=== PATIENT | male | born 1955 | race Caucasian/White ===

== ENCOUNTER → 2022-08-25 13:14 | Outpatient (CLI) | payer MEDICARE, SELFPAY | PROVIDERS: PCP Nurse Practitioner; Visit Provider Specialist | DX: G47.33 Obstructive sleep apnea (adult) (pediatric); R06.83 Snoring | CPT/HCPCS: G0399 ==

== ENCOUNTER → 2022-08-27 10:50 | Outpatient (CLI) | payer MEDICARE, SELFPAY ==
--- NOTE | 2022-08-27 10:50 | MR_ITS ---
FINAL REPORT CLINICAL HISTORY: encephalopathy, memory loss x2 years, no injury or trauma FINDINGS: Multi planar MR imaging was obtained through the brain without contrast. The midline structures appear intact. There is no evidence of Chiari malformation. On T2 and flair axial images the brain parenchyma is homogeneous. On diffusion-weighted images there is no evidence of restricted diffusion. The visualized paranasal sinuses demonstrate normal signal voids. The seventh and eighth nerve root complexes are intact. There is a well-circumscribed, ovoid cystic structure in the right parapharyngeal space measuring 2.5 x 1.1 cm on images 1 and 2 of series 6. Primary differential would be a 2nd branchial cleft cyst. There is asymmetric abnormal signal in the medial right petrous apex on images 7 and 8 of series 6 probably due to apical petrousitis. IMPRESSION: No acute intracranial abnormality. 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 Recommend CT for complimentary imaging. Reviewed, Interpreted and Dictated by Theodore Nunez MD Transcribed by Shoaib Conrad Authenticated and [facility]
--- NOTE | 2022-08-27 11:06 | XR_ITS ---
FINAL REPORT CLINICAL HISTORY: METALS IN EYES. HISTORY METAL IN EYES. FINDINGS: ORBITS Look up and look down views were obtained. No fracture is identified. The sinuses are clear. No foreign body is identified. IMPRESSION: No acute process. Reviewed, Interpreted and Dictated by Theodore Nunez MD Transcribed by Shoaib Conrad Authenticated and [facility]
== END ==
PROVIDERS: PCP Nurse Practitioner; Visit Provider Specialist
DX: G31.84 Mild cognitive impairment of uncertain or unknown etiology (principal); H53.40 Unspecified visual field defects; H05.53 Retained (old) foreign body following penetrating wound of bilateral orbits
CPT/HCPCS: 70200; 70551

== ENCOUNTER → 2022-09-09 08:34 | Outpatient (CLI) | payer MEDICARE, SELFPAY ==
--- NOTE | 2022-09-09 08:55 | CT_ITS ---
FINAL REPORT TECHNIQUE: Thin-section axial CT images were performed through the temporal bones before and after contrast administration. Coronal and sagittal reformatted images were submitted. This study was performed with techniques to keep radiation doses as low as reasonably achievable, (ALARA). Individualized dose reduction techniques using automated exposure control or adjustment of mA and/or kV according to the patient's size were employed. CLINICAL HISTORY: . abnormal MRI /petrositis COMPARISON: MRI dated August 27, 2022 FINDINGS: Right: The mastoid air cells are well aerated. The middle ear cavity is unremarkable. The ossicles are intact. The scutum is intact. There is abnormal opacification of the medial petrous apex best seen on axial images 90 4-109 of series 3. The petrous apex is slightly expansile on the right as compared to the left with associated cortical thickening probably due to chronic infection. There is no definite bony destruction. The previously seen anterior fluid collection is not well demonstrated. Left: The internal and external auditory canals are normal. The inner ear structures are within normal limits. The middle ear cavity is unremarkable. The ossicles are intact. The mastoid antrum and mastoid air cells are unremarkable. IMPRESSION: Abnormal opacification of the medial right petrous apex that is slightly expansile with a sclerotic peripheral margin consistent with chronic apical petrousitis. Reviewed, Interpreted and Dictated by Theodore Nunez MD Transcribed by Shoaib Conrad Authenticated and [facility]
[2022-09-09 09:13] LABS: Blood Urea Nitrogen 16 mg/dl (9-20); Estimated Glomerular Filt Rate 67 ml/min (>60); GFR (African American) 81 ML/MIN (>60)
--- NOTE | 2022-09-09 10:00 | HMH.ITSTN ---
ATTEMPTED TWICE TO GET IV, PATIENT WOULDN'T HOLD STILL, BOTH BLEW . HE SAID NO MORE TRIES, CALLED [facility] IN [facility] OFFICE AND WAS TOLD TO DO W/O SCAN
== END ==
PROVIDERS: PCP Nurse Practitioner; Visit Provider Specialist
DX: H70.20 Unspecified petrositis (principal); R90.89 Other abnormal findings on diagnostic imaging of central nervous system
CPT/HCPCS: 36415; 70482; 82565; 84520; Q9967

== ENCOUNTER → 2022-09-21 15:21 | Outpatient (CLI) | payer MEDICARE, SELFPAY | PROVIDERS: PCP Nurse Practitioner; Visit Provider Specialist | DX: R41.3 Other amnesia (principal) | CPT/HCPCS: 94762 ==

== ENCOUNTER → 2022-11-16 16:43 | Outpatient (CLI) | payer MEDICARE, SELFPAY ==
--- NOTE | 2022-11-16 16:51 | ECG_ITS ---
APPROVED REPORT Exam: Resting ECG HR:59 bpm ECG Measurements Heart Rate 59 AXES AZ 142 P 60 QRSd 96 QRS 52 QT 392 T 57 QTc 392 Conclusion SINUS BRADYCARDIA BORDERLINE ECG UNCONFIRMED REPORT Electronically signed by : Lalit Grimaldo MD 11/16/2022 21:10:19
== END ==
PROVIDERS: PCP Nurse Practitioner; Visit Provider Specialist
DX: I49.9 Cardiac arrhythmia, unspecified (principal)
CPT/HCPCS: 93005

== ENCOUNTER → 2023-08-09 10:52 | Outpatient (CLI) | payer MEDICARE, SELFPAY ==
--- NOTE | 2023-08-09 10:52 | FL_ITS ---
FINAL REPORT CLINICAL HISTORY: difficulty swallowing DAP: 102.40 fluoro time: 1.33 FINDINGS: MODIFIED BARIUM SWALLOW History: Dysphagia FINDINGS: Fluoroscopy was provided for the speech pathologist to evaluate the swallowing mechanism. The patient was given several different consistencies of barium while the swallow was visualized fluoroscopically. The report of the speech pathologist should be consulted prior to making dietary decisions. IMPRESSION: Modified barium swallow under fluoroscopic guidance. Please see the report of the speech pathologist for Dietary recommendations. Films reviewed , interpreted and dictated by Dr. Murdock Transcribed by Jamil Bello PA-C. Reviewed, Interpreted and Dictated by Torres Murdock III, MD Transcribed by KOBY Guevara Authenticated and [facility]
--- NOTE | 2023-08-09 11:31 | HMH.SLMBS2 ---
Speech & Language Evaluation Speech/Language Mod Barium Swallow Start: 08/09/23 11:23 Freq: once Status: Complete Protocol: Document 08/09/23 11:23 JACQUELINE (Rec: 08/09/23 11:31 JACQUELINE [id number]) General Information General Current Food Consistancy Regular,Thin Liquids Dentition Good Dentition Oxygen Status Room Air Patient Orientation Person,Place,Time Ability to Follow Directions Good Communication Ability No Impairment MBS Recommendations Diet Dietary Recommendations Regular,Thin Liquids Treatment/Strategies Strategy/Precaution Recommend Sitting Upright (90 deg), Double Swallow,No Straw,Small Bites and Sips,Alternate Liquids/Solids Referrals/Other Recommended Referrals GI Consult Mod Barium Swallow Impressions Summary and Impressions Oral Phase Impression Minimal Impairment Oral Phase Summary Minimal impairment of the oral transit and oral preparatory phase of the swallow 2' trace amounts of residue observed within oral cavity and BOT following solid trials, as well as premature spillage during subsequent straw sips of a thin liquid. Otherwise, mastication and manipulation of the bolus are found to be WFL. Pharyngeal Phase Impression Mild Impairment Pharyngeal Phase Summary Mild impairment of the pharyngeal phase of the swallow 2' lizzie residual found in the valleculae following subsequent straw sips of thin liquid that required multiple, cued effortful swallows to clear, as well as a delayed swallow initiation observed across all bolus trials administered. Otherwise, pharyngeal phase of the swallow appear to be WFL at this time with no overt s/ sxs of aspiration noted throughout the trial with minimal to no fatigue observed . Speech/Language MBS Assessment/Goals/Plan Assessment Date of Evaluation: 08/09/23 Evaluation Type Initial Certification Assessment/Problems
== END ==
PROVIDERS: PCP Nurse Practitioner; Visit Provider Specialist
DX: R13.10 Dysphagia, unspecified (principal)
CPT/HCPCS: 70371; 92611

== ENCOUNTER 2024-03-09 10:41 | Outpatient (CLI) | payer MEDICARE, SELFPAY ==
[2024-03-09 11:22] LABS: Blood Urea Nitrogen 22 mg/dl (9-20); Estimated Glomerular Filt Rate 75 ml/min (>60); GFR (African American) 90 ML/MIN (>60)
== END 2024-03-09 23:59 | disposition home or self-care (01) ==
LOC: LAB 10:49
PROVIDERS: PCP Nurse Practitioner
DX: R79.9 Abnormal finding of blood chemistry, unspecified (principal)
CPT/HCPCS: 36415; 82565; 84520

== ENCOUNTER 2024-03-10 06:42 | Outpatient (CLI) | payer MEDICARE, SELFPAY ==
--- NOTE | 2024-03-10 07:06 | CT_ITS ---
FINAL REPORT TECHNIQUE: Multiple axial CT sections were performed through the temporal bones appear coronal reconstruction images were performed.This study was performed with techniques to keep radiation doses as low as reasonably achievable (ALARA). Individualized dose reduction techniques using automated exposure control or adjustment of mA and/or kV according to the patient's size were employed. CLINICAL HISTORY: CHOLESTEROL GRANULOMA COMPARISON: 09/09/2023 FINDINGS: FINDINGS: RIGHT TEMPORAL BONE: The mastoid air cells are clear. Abnormal opacification of the petrous apex is again noted without progressive bony destruction. This appears unchanged. Differentials include cholesterol granuloma as well as a chronic infection of the petrous apex or mucocele. Middle ear space is clear. The ossicular chains are intact. The bony enters ear structures are unremarkable. The internal auditory canals are symmetric. LEFT TEMPORAL BONE: The mastoid air cells are clear. There is aerification of the petrous apex, which is clear. Middle ear space is clear. The ossicular chains are intact. The bony enters ear structures are unremarkable. The internal auditory canals are symmetric. IMPRESSION: No significant change in the right petrous apex opacification with differentials as above. Reviewed, Interpreted and Dictated by Melinda Godinez MD Transcribed by Anne Marie Whatley Authenticated and [facility]
--- NOTE | 2024-03-10 07:06 | CT_ITS ---
FINAL REPORT CLINICAL HISTORY: PARAPHARYNGEAL MASS COMPARISON: CT temporal bones dated 09/09/2022 FINDINGS: CT NECK WITH CONTRAST TECHNIQUE: Axial CT with IV contrast administration. FINDINGS: No adenopathy is present . Salivary glands are normal. Larynx is unremarkable. There is a bilobed, soft tissue density, masslike structure, posterior to the right masseter muscle, measuring 25 x 13 mm. This is well-seen on image 29 of series 3. On the prior CT from 09/09/2022, this process measured 27 x 13 mm. This could represent a congenital cyst and is considered benign in nature, particularly given lack of interval enlargement. IMPRESSION: 1. 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 2. No adenopathy or evidence of neoplasm. This study was performed using automated techniques to achieve radiation exposure as low as reasonably achievable Reviewed, Interpreted and Dictated by Melinda Godinez MD Transcribed by Anne Marie Whatley Authenticated and [facility]
[2024-03-10] MEDS: IOPAMIDOL-370 (76%);100ML BOTTLE 75 ML IV (07:53)
[2024-03-10] MEDS: SODIUM CHLORIDE 0.9% 10ML SYR (RAD ONLY) 10 ML IV (07:53)
== END 2024-03-10 23:59 | disposition home or self-care (01) ==
LOC: RAD 06:44
PROVIDERS: PCP Nurse Practitioner; Visit Provider Otolaryngology
DX: R22.1 Localized swelling, mass and lump, neck (principal); H71.90 Unspecified cholesteatoma, unspecified ear
CPT/HCPCS: 70480; 70491; Q9967

== ENCOUNTER 2025-02-01 20:18 | Observation (INO) | payer MEDICARE, SELFPAY ==
[2025-02-01] VITALS (13 sets, daily range): BP systolic 112–198; BP diastolic 79–108; PULSE 70–84; RESP 12–22; TEMP 36.6–37.1; O2SAT 93–100; BMI 29.7; BMI 29.8
--- NOTE | 2025-02-01 20:22 | ED_ITS ---
<Statement entered by Jerry Sy MD - 02/01/25 22:34> I was consulted by the APOLLO, and we discussed the complexity of the problems being addressed. I approved the treatment and management plan for this patient's care in the emergency department, thus performing a substantive portion of the medical decision making. Jerry Sy MD, MARCIA, FACEP Discharge Plan Disposition Patient Disposition: Admitted Chief Complaint: Nausea/Vomiting/Diarrhea Prescriptions Prescriptions: No Action cetirizine [Zyrtec] 10 mg tablet 10 mg PO DAILY omeprazole 20 mg capsule,delayed release(DR/EC) 20 mg PO DAILY melatonin 5 mg capsule See Rx Instructions PO .COMPLEX Rx Instructions: orally hs; famotidine [Pepcid] 20 mg tablet 20 mg PO DAILY buspirone 7.5 mg tablet 7.5 mg PO BID PRN Patient Comments: Take 1 tablet twice a day by oral route as needed for 30 days. Rocklatan 0.02-0.005 % drops Eye-Both HS Patient Comments: INSTILL 1 DROP INTO BOTH EYES EVERY DAY AT BEDTIME meloxicam 15 mg tablet 15 mg PO DAILY diphenhydramine HCl [Benadryl] 25 mg capsule 25 mg PO HS PRN rivastigmine tartrate 4.5 mg capsule See Rx Instructions .ROUTE .COMPLEX Qty: 30 7RF Dose Instruction: TAKE 1 CAPSULE BY MOUTH ONCE DAILY FOR DEMENTIA Rx Instructions: TAKE 1 CAPSULE BY MOUTH ONCE DAILY FOR DEMENTIA Referrals Follow up/Referrals: Antonella Terrazas APRN [Primary Care Provider] - See instructions Clinical Impressions Clinical Impression: Acute upper GI bleed Instructions Patient Instructions: DI for Diarrhea and Traveler's Diarrhea -- Adult, DI for Diarrhea and Traveler's Diarrhea -- Child, DI for Nausea -- Adult, DI for Nausea -- Child Print Language Print Language: Polish Discharge ED Provider: Jerry Sy General Adult HPI <KOBY Saini - Last Filed: 02/01/25 21:18> General Chief complaint: Nausea/Vomiting/Diarrhea Stated complaint: vomiting dark brown emesis,upper abd pain Time Seen by Provider: 02/01/25 20:22 History of Present Illness HPI narrative: Patient presents for evaluation of nausea vomiting of coffee ground emesis and epigastric abdominal pain. Symptoms began this afternoon abruptly. He has had several episodes of coffee-ground emesis. He does have a history of chronic dyspepsia due to the medication regimen that he is on however he is on both famotidine and omeprazole but takes meloxicam daily as well. He denies any chest pain shortness of breath fever chills hemoptysis hematochezia melena hematemesis. Related Data Home Medications ?Medication ?Instructions ?Recorded ?Confirmed meloxicam 15 mg tablet 15 mg PO DAILY 08/18/22 08/23/24 diphenhydramine HCl 25 mg capsule 25 mg PO HS PRN 02/10/23 08/23/24 (Benadryl) cetirizine 10 mg tablet (Zyrtec) 10 mg PO DAILY 05/18/23 08/23/24 melatonin 5 mg capsule See Rx Instructions PO .COMPLEX 05/18/23 08/23/24 omeprazole 20 mg capsule,delayed 20 mg PO DAILY 05/18/23 08/23/24 release famotidine 20 mg tablet (Pepcid) 20 mg PO DAILY 10/13/23 08/23/24 buspirone 7.5 mg tablet 7.5 mg PO BID PRN 02/14/24 08/23/24 netarsudil 0.02 %-latanoprost drp Eye-Both HS 08/23/24 08/23/24 0.005 % eye drops (Rocklatan) Previous Rx's ?Medication ?Instructions ?Recorded rivastigmine tartrate 4.5 mg See Rx Instructions .Route 09/04/24 capsule .COMPLEX #30 caps Allergies Allergy/AdvReac Type Severity Reaction Status Date / Time Penicillins Allergy Intermediate Verified 08/23/24 10:53 morphine AdvReac Mild Verified 08/23/24 10:53 [facility] <KOBY Saini - Last Filed: 02/01/25 21:18> [facility] Disclaimer: The information contained in this section may have been updated after the patient was seen, as this information can be updated by other users. Medical History H/O Mohs micrographic surgery for skin cancer Dysphagia Cardiac arrhythmia Mild bradycardia, splitting of second sound MCI (mild cognitive impairment) with memory loss MCI with memory loss in a patient with lifelong history of learning disability. Mild parkinsonian signs and symptoms on exam consistent with suspected diagnosis of Lewy body disease. Surgical History History of cholecystectomy Family History Other Cancer Coronary artery disease Social History Smoking Status: Never smoker alcohol intake: never substance use type: denies use current occupational status: retired Travel in the last 8 weeks: Inside the [place] household members: spouse housing: other marital status: Have you lived/traveled outside [place] in past 30 days?: No Contact w/someone who lives/traveled outside US past 30 days?: No Exposure to someone with infectious disease in past 14 days?: No Do you have a fever (greater than 100.4 F or 38 C)?: No Have you tested positive for COVID-19: No Exposed to someone with COVID-19 in past 14 days?: No Do you have a sore throat?: No Do you have a cough?: No Do you have any weakness?: No Do you have any diarrhea?: No Are you experiencing any unusual bleeding?: No Do you have any muscle aches/pain?: No Do you have any abdominal pain?: No Are you experiencing loss of taste or smell?: No Other Medical History Have you received the Pneumonia Vaccine: No <KOBY Saini - Last Filed: 02/01/25 21:18> ROS Obtained: Yes Systems reviewed as appropriate & no additional complaints except as documented Physical Exam <KOBY Saini - Last Filed: 02/01/25 21:18> General General appearance: alert and in no apparent distress Respiratory Respiratory exam: Present normal lung sounds bilaterally Cardiovascular Cardiovascular exam: Present regular rate Neurological Exam Neurological exam: Present alert and oriented X3 Medical Decision Making <KOBY Saini - Last Filed: 02/01/25 21:18> Medical Records Medical records reviewed: Yes I reviewed the patient's medical records. Screening: Per USPSTF and CDC recommendations, given the prevalence of disease in our region, it is our hospital?s policy to screen for HIV and viral Hepatitis for all patients aged 18 and over and those with ongoing risk factors. Brennan Inquiry Pt receiving controlled substance: No Vital Signs: 02/01/25 20:38 02/01/25 21:00 02/01/25 21:30 Temperature 98.7 F Temperature Source Oral Pulse Rate 77 72 Pulse Rate [Right] 84 Respiratory Rate 18 19 15 Blood Pressure 131/84 144/88 H Blood Pressure [Right Arm] 147/84 H Blood Pressure Mean [Right Arm] 105 Blood Pressure Source [Right Arm] Automatic Cuff Blood Pressure Position [Right Arm] Sitting 02 Sat by Pulse Oximetry 100 93 L 94 L Oxygen Delivery Method Room Air 02/01/25 22:01 02/01/25 22:16 02/01/25 22:31 Temperature Temperature Source Pulse Rate 74 80 72 Pulse Rate [Right] Respiratory Rate 12 Blood Pressure 172/108 H 112/93 H 198/103 H Blood Pressure [Right Arm] Blood Pressure Mean [Right Arm] Blood Pressure Source [Right Arm] Blood Pressure Position [Right Arm] 02 Sat by Pulse Oximetry 97 94 L 99 Oxygen Delivery Method Room Air Lab Data Lab results reviewed: Yes I reviewed the patient's lab results. Lab Results 02/01/25 20:33: WBC 14.0 H, RBC 5.00, Hgb 15.2, Hct 44.6, MCV 89.2, MCH 30.4, MCHC 34.1, RDW 11.9, Plt Count 229, MPV 9.4, Neut % (Auto) 82.2 H, Lymph % (Auto) 10.5, [place] % (Auto) 5.9, Eos % (Auto) 0.7, Baso % (Auto) 0.3, Neut # (Auto) 11.5 H, Lymph # (Auto) 1.5, [place] # (Auto) 0.8, Eos # (Auto) 0.1, Baso # (Auto) 0.0, PT 11.1, INR 0.99, Sodium 140, Potassium 3.4 L, Chloride 105, Carbon Dioxide 27, Anion Gap 11.4, BUN 19, Creatinine 1.00, Estimated Creat Clear 90, Estimated GFR 75, Est GFR ( Amer) 90, Glucose 107 H, Calcium 9.3, M agnesium 1.4 L, Total Bilirubin 0.8, AST 40, ALT 28, Alkaline Phosphatase 83, Total Protein 7.8, Albumin 4.2, Globulin 3.6 H, Albumin/Globulin Ratio 1.2 02/01/25 20:48: Lactate 1.5, Blood Type O Positive, Antibody Screen Negative 02/01/25 22:20: Urine Color Yellow, Urine Appearance Clear, Urine pH 7.0, Ur Specific [place] 1.010, Urine Protein Negative, Urine Glucose (UA) Negative, Urine Ketones Negative, Urine Blood Negative, Urine Nitrate Negative, Urine Bilirubin Negative, Urine Urobilinogen 0.2, Ur Leukocyte Esterase Negative, Urine RBC Occasional, Urine WBC Occasional, Ur Squamous Epith Cells Occasional, Urine Bacteria Trace, Urine Mucus Trace, Urine Sperm Occ 02/01/25 20:33 02/01/25 20:33 Orders (Tests/Meds): ED MEDICATIONS Generic Name Dose Route Start Last Admin Trade Name Freq PRN Reason Stop Dose Admin Pantoprazole Sodium 80 mg/ 100 mls @ 10 mls/hr 02/01/25 20:30 02/01/25 20:49 Sodium Chloride IV 02/04/25 20:29 10 mls/hr .Q10H SESAR Administration Discontinued Medications Generic Name Dose Route Start Last Admin Trade Name Freq PRN Reason Stop Dose Admin Acetaminophen 1,000 mg 02/01/25 20:27 02/01/25 20:50 Acetaminophen 1,000mg/100ml Vial IV 02/01/25 20:28 1,000 mg ONCE ONE Administration Sodium Chloride 1,000 mls @ 999 mls/hr 02/01/25 20:27 02/01/25 20:49 Sod Chlor 0.9% 1000ml Bag IV 02/01/25 21:27 999 mls/hr .Q1H1M ONE Administration Iopamidol 80 ml 02/01/25 21:46 02/01/25 21:50 Iopamidol-370 (76%);100ml Bottle IV 02/01/25 21:47 80 ml ONCE ONE Administration Ondansetron HCl 4 mg 02/01/25 20:27 02/01/25 20:50 Ondansetron 4mg/2ml Vial IV 02/01/25 20:28 4 mg ONCE ONE Administration Ondansetron HCl 4 mg 02/01/25 22:41 02/01/25 22:43 Ondansetron 4mg/2ml Vial IV 02/01/25 22:42 4 mg ONCE ONE Administration Sodium Chloride 50 ml 02/01/25 21:46 02/01/25 21:50 0.9 % Sodium Chloride 50 Ml Vial IV 02/01/25 21:47 50 ml ONCE ONE Administration Sodium Chloride 10 ml 02/01/25 21:46 02/01/25 21:50 Sodium Chloride 0.9% 10ml Syr (Rad Only) IV 02/01/25 21:47 10 ml ONCE ONE Administration ORDERS Category Date Time Status Type and Screen Stat BBK 02/01/25 20:[address] angio abd/pel - GI Bleed Stat Cat Scan 02/01/25 20:27 Completed CBC w/Auto Diff [Complete Blood Count Auto Diff] Stat Lab 02/01/25 20:33 Completed CMP [Comprehensive Metabolic Panel] Stat Lab 02/01/25 20:33 Completed INR [Prothrombin Time INR] Stat Lab 02/01/25 20:33 Completed Lactic Acid Stat Lab 02/01/25 20:48 Completed Magnesium Stat Lab 02/01/25 20:33 Completed Occult Blood,Gastric Fluid Stat Lab 02/01/25 22:45 Ordered UA [Urinalysis and Microscopic] Stat Lab 02/01/25 22:20 Completed Medical Decision Narrative: In summary patient is a 69-year-old male who presents to the emergency department for evaluation of nausea vomiting of coffee-ground emesis and epigastric abdominal pain. Patient is [hemodynamically stable/unstable] upon arrival, [febrile/afebrile]. Physical exam is remarkable for tenderness to palpation in the epigastrium however there is no rebound no guarding no rigidity bowel sounds normal active. Breath sounds clear equal bilaterally to the bases without Evotaz sounds or increased work of breathing.. Differential diagnosis includes gastritis versus ulcer versus GI bleeding versus pancreatitis versus gastroenteritis etc. Initial workup will be conducted with hematologic labs CT scan abdomen pelvis GI bleed protocol. Initial interventions include crystalloid bolus Protonix drip Zofran continuous cardiac monitoring pulse oximetry. Initial workup ordered and pending at the time of handoff to Dr. Sy at 2200 hrs. <Jerry Sy MD - Last Filed: 02/01/25 23:00> Vital Signs: 02/01/25 20:38 02/01/25 21:00 02/01/25 21:30 Temperature 98.7 F Temperature Source Oral Pulse Rate 77 72 Pulse Rate [Right] 84 Respiratory Rate 18 19 15 Blood Pressure 131/84 144/88 H Blood Pressure [Right Arm] 147/84 H Blood Pressure Mean [Right Arm] 105 Blood Pressure Source [Right Arm] Automatic Cuff Blood Pressure Position [Right Arm] Sitting 02 Sat by Pulse Oximetry 100 93 L 94 L Oxygen Delivery Method Room Air 02/01/25 22:01 02/01/25 22:16 02/01/25 22:31 Temperature Temperature Source Pulse Rate 74 80 72 Pulse Rate [Right] Respiratory Rate 12 Blood Pressure 172/108 H 112/93 H 198/103 H Blood Pressure [Right Arm] Blood Pressure Mean [Right Arm] Blood Pressure Source [Right Arm] Blood Pressure Position [Right Arm] 02 Sat by Pulse Oximetry 97 94 L 99 Oxygen Delivery Method Room Air Lab Data Lab results reviewed: Yes I reviewed the patient's lab results. Lab Results 02/01/25 20:33: WBC 14.0 H, RBC 5.00, Hgb 15.2, Hct 44.6, MCV 89.2, MCH 30.4, MCHC 34.1, RDW 11.9, Plt Count 229, MPV 9.4, Neut % (Auto) 82.2 H, Lymph % (Auto) 10.5, [place] % (Auto) 5.9, Eos % (Auto) 0.7, Baso % (Auto) 0.3, Neut # (Auto) 11.5 H, Lymph # (Auto) 1.5, [place] # (Auto) 0.8, Eos # (Auto) 0.1, Baso # (Auto) 0.0, PT 11.1, INR 0.99, Sodium 140, Potassium 3.4 L, Chloride 105, Carbon Dioxide 27, Anion Gap 11.4, BUN 19, Creatinine 1.00, Estimated Creat Clear 90, Estimated GFR 75, Est GFR ( Amer) 90, Glucose 107 H, Calcium 9.3, M agnesium 1.4 L, Total Bilirubin 0.8, AST 40, ALT 28, Alkaline Phosphatase 83, Total Protein 7.8, Albumin 4.2, Globulin 3.6 H, Albumin/Globulin Ratio 1.2 02/01/25 20:48: Lactate 1.5, Blood Type O Positive, Antibody Screen Negative 02/01/25 22:20: Urine Color Yellow, Urine Appearance Clear, Urine pH 7.0, Ur Specific [place] 1.010, Urine Protein Negative, Urine Glucose (UA) Negative, Urine Ketones Negative, Urine Blood Negative, Urine Nitrate Negative, Urine Bilirubin Negative, Urine Urobilinogen 0.2, Ur Leukocyte Esterase Negative, Urine RBC Occasional, Urine WBC Occasional, Ur Squamous Epith Cells Occasional, Urine Bacteria Trace, Urine Mucus Trace, Urine Sperm Occ Orders (Tests/Meds): ED MEDICATIONS Generic Name Dose Route Start Last Admin Trade Name Bob PRN Reason Stop Dose Admin Pantoprazole Sodium 80 mg/ 100 mls @ 10 mls/hr 02/01/25 20:30 02/01/25 20:49 Sodium Chloride IV 02/04/25 20:29 10 mls/hr .Q10H SESAR Administration Discontinued Medications Generic Name Dose Route Start Last Admin Trade Name Freq PRN Reason Stop Dose Admin Acetaminophen 1,000 mg 02/01/25 20:27 02/01/25 20:50 Acetaminophen 1,000mg/100ml Vial IV 02/01/25 20:28 1,000 mg ONCE ONE Administration Sodium Chloride 1,000 mls @ 999 mls/hr 02/01/25 20:27 02/01/25 20:49 Sod Chlor 0.9% 1000ml Bag IV 02/01/25 21:27 999 mls/hr .Q1H1M ONE Administration Iopamidol 80 ml 02/01/25 21:46 02/01/25 21:50 Iopamidol-370 (76%);100ml Bottle IV 02/01/25 21:47 80 ml ONCE ONE Administration Ondansetron HCl 4 mg 02/01/25 20:27 02/01/25 20:50 Ondansetron 4mg/2ml Vial IV 02/01/25 20:28 4 mg ONCE ONE Administration Ondansetron HCl 4 mg 02/01/25 22:41 02/01/25 22:43 Ondansetron 4mg/2ml Vial IV 02/01/25 22:42 4 mg ONCE ONE Administration Sodium Chloride 50 ml 02/01/25 21:46 02/01/25 21:50 0.9 % Sodium Chloride 50 Ml Vial IV 02/01/25 21:47 50 ml ONCE ONE Administration Sodium Chloride 10 ml 02/01/25 21:46 02/01/25 21:50 Sodium Chloride 0.9% 10ml Syr (Rad Only) IV 02/01/25 21:47 10 ml ONCE ONE Administration ORDERS Category Date Time Status Type and Screen Stat BBK 02/01/25 20:[address] angio abd/pel - GI Bleed Stat Cat Scan 02/01/25 20:27 Completed CBC w/Auto Diff [Complete Blood Count Auto Diff] Stat Lab 02/01/25 20:33 Completed CMP [Comprehensive Metabolic Panel] Stat Lab 02/01/25 20:33 Completed INR [Prothrombin Time INR] Stat Lab 02/01/25 20:33 Completed Lactic Acid Stat Lab 02/01/25 20:48 Completed Magnesium Stat Lab 02/01/25 20:33 Completed Occult Blood,Gastric Fluid Stat Lab 02/01/25 22:45 Ordered UA [Urinalysis and Microscopic] Stat Lab 02/01/25 22:20 Completed Medical Decision Narrative: In summary patient is a 69-year-old male who presents to the emergency department for evaluation of nausea vomiting of coffee-ground emesis and epigastric abdominal pain. Patient is [hemodynamically stable/unstable] upon arrival, [febrile/afebrile]. Physical exam is remarkable for tenderness to palpation in the epigastrium however there is no rebound no guarding no rigidity bowel sounds normal active. Breath sounds clear equal bilaterally to the bases without Evotaz sounds or increased work of breathing.. Differential diagnosis includes gastritis versus ulcer versus GI bleeding versus pancreatitis versus gastroenteritis etc. Initial workup will be conducted with hematologic labs CT scan abdomen pelvis GI bleed protocol. Initial interventions include crystalloid bolus Protonix drip Zofran continuous cardiac monitoring pulse oximetry. Initial workup ordered and pending at the time of handoff to Dr. Sy at [address] Sy 10:[address] scan was performed I personally interpreted which shows no evidence of any active extravasating bleed or any other acute pathology regarding abdominal surgical pathology. Patient has had persistent nausea and vomiting that is coffee-ground. The patient states he has had some melena however he is a poor historian his is at the bedside states that she has been able to see his stool because he does not flush and she has not noticed any melena. He does chronically take meloxicam and likely has an ulcer given his presentation. H&H is stable hemodynamically he is stable he has been given a PPI. Serial abdominal exams are benign. There was some question about whether or not Dr. Guillen would be available tomorrow morning patient is very stable does not need emergent intervention at the moment. I spoke with Dr. Sebastian and with Rob with hospital medicine. Dr. Sebastian is comfortable keeping this patient and discussed the case in the morning with Dr. Guillen also Dr. Berrios is on-call and available for backup from a procedural standpoint if needed. Critical Care <KOBY Saini - Last Filed: 02/01/25 21:18> Critical Care Time Critical Care Time: Yes Attestation: On 02/01/25, the high probability of a clinically significant, sudden or life threatening deterioration of the following system(s) required my full and direct attention, intervention and personal management. The time I documented below is in addition to time spent performing reported procedures but includes the following listed in this critical care notation. Total Time Total Critical Care Time: 35
--- NOTE | 2025-02-01 20:27 | CT_ITS ---
PROCEDURE INFORMATION: Exam: CTA Abdomen and Pelvis With Contrast Exam date and time: 02/01/2025 9:42 PM Age: 69 years old Clinical indication: Abdominal pain; Epigastric; Additional info: Coffee-ground emesis epigastric abdominal pain TECHNIQUE: Imaging protocol: Computed tomographic angiography of the abdomen and pelvis with contrast. Exam focused on the arteries. 3D rendering (Not supervised by radiologist): MIP and/or 3D reconstructed images were created by the technologist. Radiation optimization: All CT scans at this facility use at least one of these dose optimization techniques: automated exposure control; mA and/or kV adjustment per patient size (includes targeted exams where dose is matched to clinical indication); or iterative reconstruction. Contrast material: ISOVUE; Contrast volume: 80 ml; Contrast route: INTRAVENOUS (IV); COMPARISON: No relevant prior studies available. FINDINGS: Aorta: No aortic aneurysm. No aortic dissection. Celiac trunk and mesenteric arteries: No occlusion or significant stenosis. Renal arteries: No occlusion or significant stenosis. Right iliac arteries: No occlusion or significant stenosis. Left iliac arteries: No occlusion or significant stenosis. Liver: The liver appears within normal limits. Gallbladder and biliary ducts: There has been a cholecystectomy. Pancreas: The pancreas is normal. Spleen: The spleen is normal. Adrenal glands: The adrenal glands appear within normal limits. Kidneys and ureters: The kidneys are normal. Stomach and bowel: The stomach appears within normal limits. No wall thickening or inflammatory change. There are changes of diverticulosis without evidence for diverticulitis noted within the sigmoid colon.. Appendix: No evidence of appendicitis. Intraperitoneal space: No free air. No evidence for focal fluid collection or ascites. No evidence for omental thickening. Lymph nodes: Unremarkable. No pathologically enlarged lymph nodes are identified. Urinary bladder: The bladder appears within normal limits. No wall thickening. Reproductive: The prostate gland appears normal. Bones/joints: No acute fracture. Soft tissues: The visualize subcutaneous soft tissues and abdominal wall and flank wall appear unremarkable. IMPRESSION: 1. Diverticulosis without CT evidence to suggest diverticulitis. 2. No CT evidence to suggest active GI bleed. 3. No acute inflammatory process.
[2025-02-01 20:47] LABS: Basophils % 0.3 % (0.1-2.0); Eosinophils # 0.1 Kmm3 (0.0-0.4); Eosinophils % 0.7 % (0.1-12.0); Hematocrit 44.6 % (42.0-52.0); Hemoglobin 15.2 g/dL (14.1-18.0); Lymphocytes # 1.5 K/mm3 (0.7-4.5); Lymphocytes % 10.5 % (10-50); Mean Corpuscular HGB Conc 34.1 g/dL (31.8-35.4); Mean Corpuscular Hemoglobin 30.4 pg (27.0-31.2); Mean Corpuscular Volume 89.2 fl (80-94); Mean Platelet Volume 9.4 fl (7.4-10.4); Monocytes # 0.8 K/mm3 (0.1-1.0); Monocytes % 5.9 % (1.7-9.3); Neutrophils # 11.5 K/mm3 (1.8-7.8); Neutrophils % 82.2 % (37.0-80.0); Nucleated Red Blood Cells # 0 10^3/uL; Nucleated Red Blood Cells % 0 %; Platelet Count 229 K/mm3 (142-424); Red Cell Distribution Width 11.9 % (11.5-17.5); Red Cell Distribution Width-SD 38.9 fL
[2025-02-01] MEDS: 0.9 % SODIUM CHLORIDE 1000ML 1,000 ML 999 ML IV (20:49)
[2025-02-01] MEDS: PANTOPRAZOLE SODIUM 80 MG in 0.9 % SODIUM CHLORIDE 100 ML 10 MG IV (20:49)
[2025-02-01] MEDS: ONDANSETRON 4MG/2ML VIAL 4 MG IV ×2 (20:50→22:43)
[2025-02-01] MEDS: ACETAMINOPHEN 1,000MG/100ML VIAL 1000 MG IV (20:50)
[2025-02-01 21:12] LABS: Albumin Level 4.2 g/dl (3.5-5.0); Chloride 105 mmol/L (98-107); INR 0.99 (0.9-1.1); Potassium 3.4 mmoL/L (3.5-5.1); Prothrombin Time 11.1 seconds (10.1-12.5); Sodium 140 mmol/L (136-145)
[2025-02-01 21:15] LABS: Alanine Aminotransferase 28 U/L (12-78); Albumin/Globulin Ratio 1.2 (1.1-1.8); Alkaline Phosphatase 83 U/L (38-126); Anion Gap 11.4 mEq/L (5-15); Aspartate Amino Transferase 40 U/L (17-59); Bilirubin,Total 0.8 mg/dl (0.2-1.3); Blood Urea Nitrogen 19 mg/dl (9-20); Carbon Dioxide 27 mmol/L (22.0-30.0); Creatinine Clearance Estimated 90 mL/min (50-200); Estimated Glomerular Filt Rate 75 ml/min (>60); GFR (African American) 90 ML/MIN (>60); Globulin 3.6 g/dL (1.3-3.2); Total Protein,Serum 7.8 g/dl (6.3-8.2)
[2025-02-01 21:16] LABS: Calcium 9.3 mg/dl (8.4-10.2); Glucose 107 mg/dl (74-100); Magnesium 1.4 mg/dl (1.6-2.3)
[2025-02-01 21:21] LABS: Lactic Acid 1.5 mmol/L (0.7-2.1)
[2025-02-01] MEDS: 0.9 % SODIUM CHLORIDE 50 ML VIAL IV (21:50)
[2025-02-01] MEDS: SODIUM CHLORIDE 0.9% 10ML SYR (RAD ONLY) 10 ML IV (21:50)
[2025-02-01] MEDS: IOPAMIDOL-370 (76%);100ML BOTTLE 80 ML IV (21:50)
--- NOTE | 2025-02-01 22:21 | PC.NURSE ---
Addendum entered by Harvinder Sy 02/01/25 22:21: Urine sent 22:20 Original Note: Urined sent 22:20
[2025-02-01 22:23] LABS: Microscopic, Urine URINE MICROSCOPIC (MICROSCOPIC)
[2025-02-01 22:35] LABS: Appearance,Urine CLEAR (Clear); Bilirubin,Urine Negative (Negative); Blood, Urine Negative (Negative); Color,Urine YELLOW (Yellow); Glucose,Urine (UA) Negative (Negative); Ketones,Urine Negative (Negative); Leukocyte Esterase,Urine Negative (Negative); Nitrate,Urine Negative (Negative); Protein,Urine Negative (Negative); Urobilinogen,Urine 0.2 EU/dl (0.2)
[2025-02-01 22:49] LABS: Bacteria,Urine Trace /lpf; Mucus,Urine Trace /lpf; RBC,Urine Occasional #/hpf (0-3); Sperm,Urine OCC /lpf; Squamous Epithelial Cell,Urine Occasional #/hpf (0-5); WBC,Urine Occasional #/hpf (0-3)
--- NOTE | 2025-02-01 22:52 | PC.NURSE ---
Pt had an episode of dark red emesis. Pt assisted with changing into a gown and cleaning up.
--- NOTE | 2025-02-01 23:02 | PC.NURSE ---
wash house worker notified of patient to be admitted.
--- NOTE | 2025-02-01 23:12 | PC.NURSE ---
report called to marianna MARROQUIN, pending transport
--- NOTE | 2025-02-01 23:13 | P.HP_ITS ---
<Statement entered by Ernesto Sebastian MD - 02/02/25 21:29> Rounded on patient after nurse practitioner. Personally examined and interviewed patient. Agree with exam findings and care plan as documented. History of Present Illness *Admission Date: 02/01/25 *Reason for visit:: Dark color vomit *History of present illness: This is a 69-year-old male who has a past medical history significant for Lewy body dementia, cardiac arrhythmia, mild cognitive impairment with memory loss, and dysphagia who presents with a chief complaint of dark-colored vomit. Due to patient's symptoms, he presented to the emergency room for evaluation. While in the emergency room, CT scan of abdomen pelvis revealed diverticulosis without CT evidence to suggest diverticulitis, no CT evidence to suggest active GI bleed, and no acute inflammatory process. Patient's hemoglo bin, hematocrit, and blood pressure were stable. Due to the findings of hematemesis, medicine was contacted to admit for further management. During my evaluation of the patient, patient states he started experiencing epigastric pain coupled with coffee ground emesis that started this afternoon. He has experienced no lightheadedness with this; moreover, patient denies any chest pain, lightheadedness, dizziness, hemoptysis, hematuria, melanotic stool, hematochezia, shortness of breath, dyspnea, PND, orthopnea, or headache. Additional pertinent vitals obtained including white blood cell count of 14, neutrophils 82.2%, potassium of 3.4, blood glucose 107, and magnesium 1.4. Spouse at the bedside states that patient did have a lower scope performed in the past without any abnormal findings; however, he has had no upper scope performed. Review of patient's outpatient medication reveals he is prescribed meloxicam and is currently not prescribed any blood thinning medications. [facility] Disclaimer: The information contained in this section may have been updated after the patient was seen, as this information can be updated by other users. Medical History H/O Mohs micrographic surgery for skin cancer Dysphagia Cardiac arrhythmia Mild bradycardia, splitting of second sound MCI (mild cognitive impairment) with memory loss MCI with memory loss in a patient with lifelong history of learning disability. Mild parkinsonian signs and symptoms on exam consistent with suspected diagnosis of Lewy body disease. Surgical History History of cholecystectomy Family History Other Cancer Coronary artery disease Social History Smoking Status: Never smoker alcohol intake: never substance use type: denies use current occupational status: retired Travel in the last 8 weeks: Inside the [place] household members: spouse housing: other marital status: Have you lived/traveled outside US in past 30 days?: No Contact w/someone who lives/traveled outside US past 30 days?: No Exposure to someone with infectious disease in past 14 days?: No Do you have a fever (greater than 100.4 F or 38 C)?: No Have you tested positive for COVID-19: No Exposed to someone with COVID-19 in past 14 days?: No Do you have a sore throat?: No Do you have a cough?: No Do you have any weakness?: No Do you have any diarrhea?: No Are you experiencing any unusual bleeding?: No Do you have any muscle aches/pain?: No Do you have any abdominal pain?: No Are you experiencing loss of taste or smell?: No Other Medical History Have you received the Pneumonia Vaccine: No Review of Systems Review of Systems Review of systems:: pertinent systems reviewed and negative unless documented below Constitutional Constitutional: Reports system reviewed and no additional complaints, except as documented Eyes Eyes: Reports system reviewed and no additional complaints, except as documented ENT Ears, Nose, Mouth, and Throat: Reports system reviewed and no additional complaints, except as documented *Cardiovascular Cardiovascular: Reports system reviewed and no additional complaints, except as documented *Respiratory Respiratory: Reports system reviewed and no additional complaints, except as documented *Gastrointestinal Gastrointestinal: Reports abdominal pain and Reports coffee ground emesis *Genitourinary Genitourinary: Reports system reviewed and no additional complaints, except as documented *Musculoskeletal Musculoskeletal: Reports system reviewed and no additional complaints, except as documented Integumentary/Breasts Skin/Breast: Reports system reviewed and no additional complaints, except as documented *Neurologic Neurologic: Reports system reviewed and no additional complaints, except as documented Psychiatric Psychiatric: Reports system reviewed and no additional complaints, except as documented Endocrine Endocrine: Reports system reviewed and no additional complaints, except as documented Hematologic/Lymphatic Hematologic/Lymphatic: Reports system reviewed and no additional complaints, except as documented Allergic/Immunologic Allergic/Immunologic: Reports system reviewed and no additional complaints, except as documented Meds Home Medications and Allergies Home Medications ?Medication ?Instructions ?Recorded ?Confirmed ?Type meloxicam 15 mg tablet 15 mg PO DAILY 08/18/22 08/23/24 History diphenhydramine HCl 25 mg capsule 25 mg PO HS PRN 02/10/23 08/23/24 History (Benadryl) cetirizine 10 mg tablet (Zyrtec) 10 mg PO DAILY 05/18/23 08/23/24 History melatonin 5 mg capsule See Rx Instructions PO .COMPLEX 05/18/23 08/23/24 History omeprazole 20 mg capsule,delayed 20 mg PO DAILY 05/18/23 08/23/24 History release famotidine 20 mg tablet (Pepcid) 20 mg PO DAILY 10/13/23 08/23/24 History buspirone 7.5 mg tablet 7.5 mg PO BID PRN 02/14/24 08/23/24 History netarsudil 0.02 %-latanoprost drp Eye-Both HS 08/23/24 08/23/24 History 0.005 % eye drops (Rocklatan) rivastigmine tartrate 4.5 mg See Rx Instructions .Route 09/04/24 Rx capsule .COMPLEX #30 caps New Prescriptions to Start Prescriptions: Allergies Allergy/AdvReac Type Severity Reaction Status Date / Time Penicillins Allergy Intermediate Verified 08/23/24 10:53 morphine AdvReac Mild Verified 08/23/24 10:53 Exam Data for Last 24 hours Vital signs and Labs for Last 24 Hours: Temp Pulse Resp BP Pulse Ox O2 Del Method 98.7 F 74 16 168/94 H 96 Room Air 02/01/25 20:38 02/01/25 23:06 02/01/25 23:06 02/01/25 23:06 02/01/25 23:06 02/01/25 22:31 Laboratory Results - last 24 hr 02/01/25 20:33: WBC 14.0 H, RBC 5.00, Hgb 15.2, Hct 44.6, MCV 89.2, MCH 30.4, MCHC 34.1, RDW 11.9, Plt Count 229, MPV 9.4, Neut % (Auto) 82.2 H, Lymph % (Auto) 10.5, [place] % (Auto) 5.9, Eos % (Auto) 0.7, Baso % (Auto) 0.3, Neut # (Auto) 11.5 H, Lymph # (Auto) 1.5, [place] # (Auto) 0.8, Eos # (Auto) 0.1, Baso # (Auto) 0.0, PT 11.1, INR 0.99, Sodium 140, Potassium 3.4 L, Chloride 105, Carbon Dioxide 27, Anion Gap 11.4, BUN 19, Creatinine 1.00, Estimated Creat Clear 90, Estimated GFR 75, Est GFR ( Amer) 90, Glucose 107 H, Calcium 9.3, Magnesium 1.4 L, Total Bilirubin 0.8, AST 40, ALT 28, Alkaline Phosphatase 83, Total Protein 7.8, Albumin 4.2, Globulin 3.6 H, Albumin/Globulin Ratio 1.2 02/01/25 20:48: Lactate 1.5, Blood Type O Positive, Antibody Screen Negative 02/01/25 22:20: Urine Color Yellow, Urine Appearance Clear, Urine pH 7.0, Ur Specific [place] 1.010, Urine Protein Negative, Urine Glucose (UA) Negative, Urine Ketones Negative, Urine Blood Negative, Urine Nitrate Negative, Urine Bilirubin Negative, Urine Urobilinogen 0.2, Ur Leukocyte Esterase Negative, Urine RBC Occasional, Urine WBC Occasional, Ur Squamous Epith Cells Occasional, Urine Bacteria Trace, Urine Mucus Trace, Urine Sperm Occ I & O for Last 24 hours: Intake & Output 01/29/25 01/30/25 01/31/25 02/01/25 23:59 23:59 23:59 23:59 Weight 88.904 kg Constitutional Constitutional: no acute distress and cooperative *Routine HEENT Exam Head: Present normocephalic and atraumatic Eye: Present EOMI ENT: Present mucous membranes moist *Routine Neck Exam Neck: Present supple, full ROM and trachea midline *Routine Respiratory Exam Respiratory: Present CTA bilaterally, normal respiratory effort, able to speak in complete sentences and symmetric chest movement *Routine Cardiovascular Exam Cardiovascular: Present RRR, Normal S1 and Normal S2 *Routine Abdominal Exam Abdominal: Present soft and normoactive bowel sounds *Routine Rectal Exam Rectal:: deferred *Routine Genitalia Exam Genitalia:: deferred *Routine Extremities Exam Extremities: Present full ROM, pulses intact and normal capillary refill Routine Back/Spine/Pelvis Exam Back/Spine: Present full ROM *Routine Skin Exam Skin: Present intact, dry, warm and normal turgor *Routine Neurological Exam Neurological: Present alert, CN II-XII intact, moving all extremities and normal speech Routine Psychiatric Exam Psychiatric: Present normal affect, normal thought process, cooperative, good insight and good judgment H&P: Result Impressions 69-year-old male with chronic NSAID use and no known gastritis or ulcers in the past who presents with hematemesis. Assessment and Plan *Assessment and plan (1) Acute upper GI bleed: Status: Acute Category: Medical Code(s): K92.2 - Gastrointestinal hemorrhage, unspecified (2) Hematemesis: Status: Acute Qualifiers: Nausea presence: with nausea Qualified Code(s): K92.0 - Hematemesis Category: Medical Code(s): K92.0 - Hematemesis (3) Leukocytosis: Status: Acute Qualifiers: Leukocytosis type: unspecified Qualified Code(s): D72.829 - Elevated white blood cell count, unspecified Category: Medical Code(s): D72.829 - Elevated white blood cell count, unspecified (4) Intractable nausea and vomiting: Status: Acute Category: Medical Code(s): R11.2 - Nausea with vomiting, unspecified (5) Hypokalemia: Status: Acute Category: Medical Code(s): E87.6 - Hypokalemia (6) Hypomagnesemia: Status: Acute Category: Medical Code(s): E83.42 - Hypomagnesemia (7) Diverticulosis of colon without diverticulitis: Status: Acute Category: Medical Code(s): K57.30 - Diverticulosis of large intestine without perforation or abscess without bleeding Plan Assessment: Acute upper GI bleed Hematemesis - Will hold meloxicam for now -Will give 100 mg of misoprostol p.o. now and then twice daily - Consult GI specialist in the a.m. - 40 mg of Protonix IV twice daily - Will recheck hemoglobin hematocrit in the a.m.; as of right now, patient's hemoglobin and vital signs are stable Leukocytosis with left shift - Most likely in the setting of contraction from nausea and vomiting - No obvious signs or voicing of infection - Will monitor patient's fever if any fever we will obtain blood cultures x 2 and procalcitonin Intractable nausea and vomiting - Will give gentle IV hydration - 4 mg Zofran IV push every 8 hours as needed nausea and vomiting - 25 mg of promethazine IV every 4 hours as needed nausea vomiting Hypokalemia - 20 mEq of potassium p.o. x 1 - Recheck potassium in a.m. Hypomagnesia -2 g magnesium IV x 1 - Recheck magnesium in the a.m. Diverticulosis without diverticulitis -Abdominal exam is benign -Will monitor for symptomology Plan: Admit patient to the MedSurg unit on telemetry SCDs to bilateral lower extremity Regular diet for now and then n.p.o. after midnight CBC/BMP daily Normal saline at 75 mL an hour 2 mg of morphine IV push every 4 hours as needed severe pain Full code I will discuss this case with attending physician Dr. Sebastian and I look forward to more improvement
[2025-02-01 23:17] LABS: Occult Blood,Gastric Fluid Negative (Negative)
[2025-02-02] VITALS (14 sets, daily range): BP systolic 115–148; BP diastolic 69–88; PULSE 54–81; RESP 16–20; TEMP 36.1–36.7; O2SAT 92–98; BMI 31.2
[2025-02-02] MEDS: MAGNESIUM SULFATE IN WATER 2 GM/50 ML PIGGYBACK IV (00:02)
[2025-02-02] MEDS: POTASSIUM CHLORIDE 20MEQ TAB 20 MEQ PO (00:02)
[2025-02-02] MEDS: 0.9 % SODIUM CHLORIDE 1000ML 1,000 ML 75 ML IV (00:02)
[2025-02-02] MEDS: miSOPROStol 100MCG TABLET 100 MCG PO (00:02)
--- NOTE | 2025-02-02 05:20 | PC.NURSE ---
Pt is alert to self and place. Pt is sometimes slow to answer, is at bedside to assist with communication. Pt denies pain and has vomited once this shift(dark brown in color) however pt denied nausea meds when asked. Pt is tolerating fluids well at this time. Pt is NPO in prep for GI consult this morning. Pt has had no other acute changes to note this shift.
[2025-02-02 06:24] LABS: Basophils % 0.2 % (0.1-2.0); Eosinophils % 0.3 % (0.1-12.0); Hematocrit 37.7 % (42.0-52.0); Lymphocytes # 1.1 K/mm3 (0.7-4.5); Lymphocytes % 11.4 % (10-50); Mean Corpuscular HGB Conc 33.7 g/dL (31.8-35.4); Mean Corpuscular Hemoglobin 30.2 pg (27.0-31.2); Mean Corpuscular Volume 89.8 fl (80-94); Mean Platelet Volume 9.3 fl (7.4-10.4); Monocytes # 0.8 K/mm3 (0.1-1.0); Monocytes % 8.3 % (1.7-9.3); Neutrophils # 7.6 K/mm3 (1.8-7.8); Neutrophils % 79.4 % (37.0-80.0); Nucleated Red Blood Cells # 0 10^3/uL; Nucleated Red Blood Cells % 0 %; Platelet Count 179 K/mm3 (142-424); Red Cell Distribution Width-SD 38.9 fL; White Blood Count 9.6 K/mm3 (4.8-10.8)
[2025-02-02 06:31] LABS: Hemoglobin 12.9 g/dL (14.1-18.0)
[2025-02-02 06:34] LABS: Chloride 107 mmol/L (98-107); Potassium 3.8 mmoL/L (3.5-5.1); Sodium 138 mmol/L (136-145)
[2025-02-02 06:37] LABS: Anion Gap 8.8 mEq/L (5-15); Blood Urea Nitrogen 17 mg/dl (9-20); Calcium 8.2 mg/dl (8.4-10.2); Carbon Dioxide 26 mmol/L (22.0-30.0); Creatinine Clearance Estimated 95 mL/min (50-200); Estimated Glomerular Filt Rate 84 ml/min (>60); GFR (African American) 102 ML/MIN (>60); Glucose 110 mg/dl (74-100)
--- NOTE | 2025-02-02 07:39 | HMH.PHAINT1 ---
Pharmacy Intervention Comments: MEDICATION RECONCILIATION COMPLETED ON PATIENT USING EXTERNAL FILL HISTORY FROM PHARMACY AND PATIENT'S OWN MEDS. -ADRIA TOBARD
[2025-02-02 07:42] LABS: Magnesium 1.7 mg/dl (1.6-2.3)
--- NOTE | 2025-02-02 07:47 | P.HP_ITS ---
History of Present Illness *Admission Date: 02/01/25 *Reason for visit:: GI bleed/hematemesis *History of present illness: Mr. Stauffer is a 69-year-old gentleman who is here for coffee-ground emesis and presumed upper GI bleed. The examination is deemed medically necessary for diagnostic EGD. The patient has been seen, interviewed and examined prior to the procedure by both myself and the anesthesia provider. [facility] Disclaimer: The information contained in this section may have been updated after the patient was seen, as this information can be updated by other users. Medical History H/O Mohs micrographic surgery for skin cancer Dysphagia Cardiac arrhythmia Mild bradycardia, splitting of second sound MCI (mild cognitive impairment) with memory loss MCI with memory loss in a patient with lifelong history of learning disability. Mild parkinsonian signs and symptoms on exam consistent with suspected diagnosis of Lewy body disease. Surgical History History of cholecystectomy Family History Other Cancer Coronary artery disease Social History (Updated 02/02/25 @ 00:33 by Loraine Resendiz RN) Smoking Status: Never smoker alcohol intake: never substance use type: denies use current occupational status: employed and retired Travel in the last 8 weeks: [place] the [place] household members: spouse housing: other marital status: Have you lived/traveled outside US in past 30 days?: No Contact w/someone who lives/traveled outside US past 30 days?: No Exposure to someone with infectious disease in past 14 days?: No Do you have a fever (greater than 100.4 F or 38 C)?: No Have you tested positive for COVID-19: No Exposed to someone with COVID-19 in past 14 days?: No Do you have a sore throat?: No Do you have a cough?: No Do you have any weakness?: No Do you have any diarrhea?: No Are you experiencing any unusual bleeding?: No Do you have any muscle aches/pain?: No Do you have any abdominal pain?: No Are you experiencing loss of taste or smell?: No Other Medical History Have you received the Flu Vaccine for this season: No Have you received the Pneumonia Vaccine: No Review of Systems Review of Systems Review of systems (narrative): Negative *Cardiovascular Comments: Negative *Gastrointestinal Comments: Negative *Genitourinary Comments: Negative *Musculoskeletal Comments: Negative *Neurologic Neurologic: Reports system reviewed and no additional complaints, except as documented Comments: Negative Meds Home Medications and Allergies Home Medications ?Medication ?Instructions ?Recorded ?Confirmed ?Type meloxicam 15 mg tablet 15 mg PO DAILYP PRN Mild Pain 08/18/22 02/02/25 History (Scale Score 1-4) diphenhydramine HCl 25 mg capsule 50 mg PO HSP PRN Sleep 02/10/23 02/02/25 History (Benadryl) cetirizine 10 mg tablet (Zyrtec) 10 mg PO DAILY 05/18/23 02/02/25 History melatonin 5 mg capsule 5 mg PO HS 05/18/23 02/02/25 History omeprazole 20 mg capsule,delayed 20 mg PO DAILYP PRN Acid Reflux 05/18/23 02/02/25 History release famotidine 20 mg tablet (Pepcid) 20 mg PO DAILY 10/13/23 02/02/25 History buspirone 7.5 mg tablet 7.5 mg PO BIDP PRN Anxiety 02/14/24 02/02/25 History netarsudil 0.02 %-latanoprost 1 drp Eye-Both HS 08/23/24 02/02/25 History 0.005 % eye drops (Rocklatan) rivastigmine tartrate 4.5 mg 4.5 mg PO HS 02/02/25 02/02/25 History capsule New Prescriptions to Start Prescriptions: Allergies Allergy/AdvReac Type Severity Reaction Status Date / Time Penicillins Allergy Intermediate Verified 08/23/24 10:53 morphine AdvReac Mild Verified 08/23/24 10:53 Exam Data for Last 24 hours Vital signs and Labs for Last 24 Hours: Temp Pulse Resp BP Pulse Ox O2 Del Method 98.0 F 66 16 125/78 96 Room Air 02/02/25 07:42 02/02/25 07:42 02/02/25 07:42 02/02/25 07:42 02/02/25 07:42 02/02/25 07:42 Laboratory Results - last 24 hr 02/01/25 20:33: WBC 14.0 H, RBC 5.00, Hgb 15.2, Hct 44.6, MCV 89.2, MCH 30.4, MCHC 34.1, RDW 11.9, Plt Count 229, MPV 9.4, Neut % (Auto) 82.2 H, Lymph % (Auto) 10.5, [place] % (Auto) 5.9, Eos % (Auto) 0.7, Baso % (Auto) 0.3, Neut # (Auto) 11.5 H, Lymph # (Auto) 1.5, [place] # (Auto) 0.8, Eos # (Auto) 0.1, Baso # (Auto) 0.0, PT 11.1, INR 0.99, Sodium 140, Potassium 3.4 L, Chloride 105, Carbon Dioxide 27, Anion Gap 11.4, BUN 19, Creatinine 1.00, Estimated Creat Clear 90, Estimated GFR 75, Est GFR ( Amer) 90, Glucose 107 H, Calcium 9.3, Magnesium 1.4 L, Total Bilirubin 0.8, AST 40, ALT 28, Alkaline Phosphatase 83, Total Protein 7.8, Albumin 4.2, Globulin 3.6 H, Albumin/Globulin Ratio 1.2 02/01/25 20:48: Lactate 1.5, Blood Type O Positive, Antibody Screen Negative 02/01/25 22:20: Urine Color Yellow, Urine Appearance Clear, Urine pH 7.0, Ur Specific [place] 1.010, Urine Protein Negative, Urine Glucose (UA) Negative, Urine Ketones Negative, Urine Blood Negative, Urine Nitrate Negative, Urine Bilirubin Negative, Urine Urobilinogen 0.2, Ur Leukocyte Esterase Negative, Urine RBC Occasional, Urine WBC Occasional, Ur Squamous Epith Cells Occasional, Urine Bacteria Trace, Urine Mucus Trace, Urine Sperm Occ 02/01/25 22:55: Gastric Occult Blood Negative 02/02/25 05:55: WBC 9.6 D, RBC 4.20 L, Hgb 12.9 L D, Hct 37.7 L, MCV 89.8, MCH 30.2, MCHC 33.7, RDW 12.0, Plt Count 179, MPV 9.3, Neut % (Auto) 79.4, Lymph % (Auto) 11.4, [place] % (Auto) 8.3, Eos % (Auto) 0.3, Baso % (Auto) 0.2, Neut # (Auto) 7.6, Lymph # (Auto) 1.1, [place] # (Auto) 0.8, Eos # (Auto) 0.0, Baso # (Auto) 0.0, Sodium 138, Potassium 3.8, Chloride 107, Carbon Dioxide 26, Anion Gap 8.8, BUN 17, Creatinine 0.90, Estimated Creat Clear 95, Estimated GFR 84, Est GFR ( Amer) 102, Glucose 110 H, Calcium 8.2 L I & O for Last 24 hours: Intake & Output 01/30/25 01/31/25 02/01/25 02/02/25 23:59 23:59 23:59 23:59 Intake Total 120 / 120 Output Total 0 / 0 Balance 120 / 120 Weight 196 lb 8 oz 206 lb 3 oz *Routine HEENT Exam Head: Present normocephalic Eye: Present EOMI and PERRL ENT: Present mucous membranes moist *Routine Neck Exam Neck: Present supple *Routine Respiratory Exam Respiratory: Present CTA bilaterally *Routine Cardiovascular Exam Cardiovascular: Present RRR *Routine Abdominal Exam Abdominal: Present soft and normoactive bowel sounds; Absent tenderness *Routine Rectal Exam Rectal:: deferred *Routine Genitalia Exam Genitalia:: deferred *Routine Extremities Exam Extremities: Absent cyanosis, clubbing or edema *Routine Skin Exam Skin: Present warm; Absent rash *Routine Neurological Exam Neurological: Present alert and oriented X3 Assessment and Plan *Assessment and plan (1) Coffee ground emesis: Status: Acute Category: Medical Code(s): K92.0 - Hematemesis (2) Acute upper GI bleed: Status: Acute Category: Medical Code(s): K92.2 - Gastrointestinal hemorrhage, unspecified Plan A/P: 1. Coffee-ground emesis with acute upper GI bleed is the preprocedural diagnosis. The patient will be anesthetized/sedated using MAC sedation. The patient has been seen and examined. Cardiac and lung assessment prior to the examination is stable. Proceed with planned diagnostic EGD.
--- NOTE | 2025-02-02 07:49 | P.PCN_ITS ---
[facility] Procedure Note Date: 02/02/25 Time: 07:57 Procedure Note:: Upper Endoscopy Procedure Report: Esophagogastroduodenoscopy with cold biopsies Endoscopost: Jules Guillen II, MD Referring Physician: BALA Persaud Date of Procedure: February 02, 2025 Equipment: Olympus GIF 190 standard upper endoscope Sedation: MAC sedation Indications: Mr. Stauffer is a 69-year-old gentleman with Lewy body dementia who presents with nausea, vomiting and coffee-ground emesis. He also has had ep igastric abdominal pain and does have some chronic nausea and dyspepsia. He has never had an EGD. This coffee-ground emesis began yesterday with a large amount of emesis at 5 PM. He had 2 subsequent episodes that were smaller. He has not had any melena. He is not on any anticoagulation. He does take meloxicam. He had a colonoscopy 5 to 6 years ago in [place] but has had no prior EGD. He d oes not have heartburn, reflux or dysphagia. He is on omeprazole and famotidine (nightly) for his nausea. His hemoglobin and hematocrit decline from 15.2 and 44.6 down to 12.9 and 37.7 with hydration. His platelet count was normal. Procedure: Prior to the procedure, a history and physical exam was performed, and patient's medications and allergies were reviewed. The risks, benefits and alternatives of the sedation and procedure were discussed with the patient. All questions were answered and informed consent was obtained. The patient was brought to the procedure room. Patient identification and proposed procedure were verified by the physician and the nurse. The patient was placed in a left lateral decubitus position and the scope was passed under direct vision. Throughout the p rocedure, the patient's blood pressure, pulse, and oxygen saturations were monitored continuously. The upper GI endoscopy was accomplished without difficulty. The patient tolerated the procedure well. Findings: The scope was passed directly into the upper esophagus and advanced to the fourth portion of the duodenum. The post bulbar duodenum, ampulla and duodenal bulb were normal with normal mucosa and conniventes. There was a periampullary duodenal diverticulum in the second portion. There were no ulcerations, erosions or AVMs. The scope was withdrawn through a normal duodenal bulb and pylorus into the stomach. There was bile reflux with mild linear reactive gastropathy of the antrum and mild chronic gastritis of the proximal stomach. Biopsies were taken from the lesser curvature to rule out H. pylori. Upon retroflexion there was a 3 cm medium sized hiatal hernia. There were no ulcerations or erosions within the stomach. The scope was then withdrawn into the esophagus. There was grade B reflux esophagitis and biopsies were taken at the GE junction. There was no evidence of Islas's or strictures. There was a mid lower esophageal traction diverticulum. The remainder of the esophageal mucosa was normal. Impression: 1. Grade B (LA classification) reflux esophagitis with medium size 3 cm hiatal hernia 2. Mid lower esophageal diverticulum (traction diverticulum) 3. Bile reflux with mild linear reactive gastropathy and mild chronic gastritis 4. Small periampullary duodenal diverticulum Plan: I will follow-up the biopsies and discussed the findings with the patient and family. I do feel that he primarily has bile reflux with dyspepsia. There was no heme in the stomach and no etiology of bleeding other than the reflux esophagitis. I do feel that most of his drop in hemoglobin overnight was volume repletion and dilutional.
[2025-02-02 08:30] LABS: Iron 112 ug/dL (49-181)
[2025-02-02 08:40] LABS: Total Iron Binding Capacity 324 ug/dL (261-462)
[2025-02-02] MEDS: FAMOTIDINE 20MG TABLET 20 MG PO (08:48)
[2025-02-02] MEDS: BUSPIRONE HCL 5 MG TABLET 7.5 MG PO (08:48)
[2025-02-02] MEDS: PANTOPRAZOLE 40MG VIAL 40 MG IV (08:49)
[2025-02-02] MEDS: LORATADINE 10MG TABLET 10 MG PO (08:49)
[2025-02-02 09:07] LABS: Ferritin 30.5 ng/ml (17.9-464)
--- NOTE | 2025-02-02 10:47 | P.DS_ITS ---
General Admission date:: 02/01/25 Discharge date: 02/02/25 HPI HPI HPI: This is a 69-year-old male who has a past medical history significant for Lewy body dementia, cardiac arrhythmia, mild cognitive impairment with memory loss, and dysphagia who presents with a chief complaint of dark-colored vomit. Due to patient's symptoms, he presented to the emergency room for evaluation. While in the emergency room, CT scan of abdomen pelvis revealed diverticulosis without CT evidence to suggest diverticulitis, no CT evidence to suggest active GI bleed, and no acute inflammatory process. Patient's hemog lobin, hematocrit, and blood pressure were stable. Due to the findings of hematemesis, medicine was contacted to admit for further management. During my evaluation of the patient, patient states he started experiencing epigastric pain coupled with coffee ground emesis that started this afternoon. He has experienced no lightheadedness with this; moreover, patient denies any chest pain, lightheadedness, dizziness, hemoptysis, hematuria, melanotic stool, hematochezia, shortness of breath, dyspnea, PND, orthopnea, or headache. Additional pertinent vitals obtained including white blood cell count of 14, neutrophils 82.2%, potassium of 3.4, blood glucose 107, and magnesium 1.4. Spouse at the bedside states that patient did have a lower scope performed in the past without any abnormal findings; however, he has had no upper scope performed. Review of patient's outpatient medication reveals he is prescribed meloxicam and is currently not prescribed any blood thinning medications. Hospital Course Hospital Course Hospital Course: 69-year-old male admitted for concern for upper GI bleed with hematemesis. Was evaluated by GI. Meloxicam held. Taken for EGD, found to have reflux esophagitis with biliary reflux. And reactive gastropathy with chronic mild gastritis. Continue PPI. Stable discharge home with further follow-up as an outpatient. Problems addressed as follows: Suspected acute upper GI bleed Hematemesis Intractable nausea and vomiting - Patient having coffee-ground emesis prior to admission. Serial hemoglobins monitored. Drop from 15-12.9. Home meloxicam was held. GI consulted and evaluated patient. Was initiated on misoprostol 100 mg every 6 hours due to con cern for NSAID induced gastritis or ulcers. Started on pantoprazole 40 mg IV twice daily after 80 mg IV load. Patient was taken for EGD. Found to have grade B reflux esophagitis with medium size 3 cm hiatal hernia. Had mid lower esophageal diverticulum. Also found to have bile reflux with mild linear reactive gastropathy and mild chronic gastritis. Small periampullary duodenal diverticulum. Recommend initiating Iberogast and continuing PPI. Patient primarily has bile reflux with dyspepsia. No heme in stomach, no active bleeding at this time. - Nausea and vomiting improved with gentle IV hydration and Zofran as needed. No further emesis on morning of discharge Hypokalemia: Responded to replacement. 3.8 on morning of discharge. Hypomagnesia: Responded to replacement. Improved on morning of discharge Diverticulosis without diverticulitis: Abdominal exam is benign. Continue low FODMAP diet Exam Data for Last 24 hours Vital signs and Labs for Last 24 Hours: Temp Pulse Resp BP Pulse Ox O2 Del Method O2 Flow Rate 97.8 F 60 18 140/88 96 Room Air 5 02/02/25 08:55 02/02/25 08:55 02/02/25 08:55 02/02/25 08:55 02/02/25 08:55 02/02/25 09:00 02/02/25 07:47 Laboratory Results - last 24 hr 02/01/25 20:33: WBC 14.0 H, RBC 5.00, Hgb 15.2, Hct 44.6, MCV 89.2, MCH 30.4, MCHC 34.1, RDW 11.9, Plt Count 229, MPV 9.4, Neut % (Auto) 82.2 H, Lymph % (Auto) 10.5, [place] % (Auto) 5.9, Eos % (Auto) 0.7, Baso % (Auto) 0.3, Neut # (Auto) 11.5 H, Lymph # (Auto) 1.5, Atlantic # (Auto) 0.8, Eos # (Auto) 0.1, Baso # (Auto) 0.0, PT 11.1, INR 0.99, Sodium 140, Potassium 3.4 L, Chloride 105, Carbon Dioxide 27, Anion Gap 11.4, BUN 19, Creatinine 1.00, Estimated Creat Clear 90, Estimated GFR 75, Est GFR ( Amer) 90, Glucose 107 H, Calcium 9.3, Magnesium 1.4 L, Total Bilirubin 0.8, AST 40, ALT 28, Alkaline Phosphatase 83, Total Protein 7.8, Albumin 4.2, Globulin 3.6 H, Albumin/Globulin Ratio 1.2 02/01/25 20:48: Lactate 1.5, Blood Type O Positive, Antibody Screen Negative 02/01/25 22:20: Urine Color Yellow, Urine Appearance Clear, Urine pH 7.0, Ur Specific [place] 1.010, Urine Protein Negative, Urine Glucose (UA) Negative, Urine Ketones Negative, Urine Blood Negative, Urine Nitrate Negative, Urine Bilirubin Negative, Urine Urobilinogen 0.2, Ur Leukocyte Esterase Negative, Urine RBC Occasional, Urine WBC Occasional, Ur Squamous Epith Cells Occasional, Urine Bacteria Trace, Urine Mucus Trace, Urine Sperm Occ 02/01/25 22:55: Gastric Occult Blood Negative 02/02/25 05:55: WBC 9.6 D, RBC 4.20 L, Hgb 12.9 L D, Hct 37.7 L, MCV 89.8, MCH 30.2, MCHC 33.7, RDW 12.0, Plt Count 179, MPV 9.3, Neut % (Auto) 79.4, Lymph % (Auto) 11.4, Atlantic % (Auto) 8.3, Eos % (Auto) 0.3, Baso % (Auto) 0.2, Neut # (Auto) 7.6, Lymph # (Auto) 1.1, Atlantic # (Auto) 0.8, Eos # (Auto) 0.0, Baso # (Auto) 0.0, Sodium 138, Potassium 3.8, Chloride 107, Carbon Dioxide 26, Anion Gap 8.8, BUN 17, Creatinine 0.90, Estimated Creat Clear 95, Estimated GFR 84, Est GFR ( Amer) 102, Glucose 110 H, Calcium 8.2 L, Magnesium 1.7 D, Iron 112, TIBC 324, Iron Saturation 34.84263, Ferritin 30.5 I & O for Last 24 hours: Intake & Output 01/30/25 01/31/25 02/01/25 02/02/25 23:59 23:59 23:59 23:59 Intake Total 427 / 427 Output Total 0 / 0 Balance 427 / 427 Weight 89.131 kg 93.525 kg Constitutional Constitutional: no acute distress, obese, chronically ill appearing and cooperative *Routine HEENT Exam Head: Present normocephalic Eye: Present EOMI and PERRL ENT: Present mucous membranes moist *Routine Neck Exam Neck: Present supple; Absent lymphadenopathy *Routine Respiratory Exam Respiratory: Present CTA bilaterally *Routine Cardiovascular Exam Cardiovascular: Present RRR *Routine Abdominal Exam Abdominal: Present soft, normoactive bowel sounds and tenderness (mild ep igastric pain) *Routine Rectal Exam Patient deferred: visual exam *Routine Exam Patient deferred: penile exam *Routine Extremities Exam Extremities: Absent cyanosis, clubbing or edema *Routine Skin Exam Skin: Present warm; Absent rash *Routine Neurological Exam Neurological: Present alert, oriented X3 and moving all extremities; Absent altered mental status Results Data Completed and Pending Labs on day of discharge: Labs from last 24 hours 02/02/25 02/01/25 02/01/25 05:55 22:55 22:20 WBC 9.6 D RBC 4.20 L Hgb 12.9 L D Hct 37.7 L MCV 89.8 MCH 30.2 MCHC 33.7 RDW 12.0 Plt Count 179 MPV 9.3 Neut % (Auto) 79.4 Lymph % (Auto) 11.4 Atlantic % (Auto) 8.3 Eos % (Auto) 0.3 Baso % (Auto) 0.2 Neut # (Auto) 7.6 Lymph # (Auto) 1.1 Atlantic # (Auto) 0.8 Eos # (Auto) 0.0 Baso # (Auto) 0.0 PT INR Sodium 138 Potassium 3.8 Chloride 107 Carbon Dioxide 26 Anion Gap 8.8 BUN 17 Creatinine 0.90 Estimated Creat Clear 95 Estimated GFR 84 Est GFR ( Amer) 102 Glucose 110 H Lactate Calcium 8.2 L Magnesium 1.7 D Iron 112 TIBC 324 Iron Saturation 34.08699 Ferritin 30.5 Total Bilirubin AST ALT Alkaline Phosphatase Total Protein Albumin Globulin Albumin/Globulin Ratio Urine Color Yellow Urine Appearance Clear Urine pH 7.0 Ur Specific [place] 1.010 Urine Protein Negative Urine Glucose (UA) Negative Urine Ketones Negative Urine Blood Negative Urine Nitrate Negative Urine Bilirubin Negative Urine Urobilinogen 0.2 Ur Leukocyte Esterase Negative Urine RBC Occasional Urine WBC Occasional Ur Squamous Epith Cells Occasional Urine Bacteria Trace Urine Mucus Trace Urine Sperm Occ Gastric Occult Blood Negative Blood Type Antibody Screen 02/01/25 02/01/25 20:48 20:33 WBC 14.0 H RBC 5.00 Hgb 15.2 Hct 44.6 MCV 89.2 MCH 30.4 MCHC 34.1 RDW 11.9 Plt Count 229 MPV 9.4 Neut % (Auto) 82.2 H Lymph % (Auto) 10.5 Atlantic % (Auto) 5.9 Eos % (Auto) 0.7 Baso % (Auto) 0.3 Neut # (Auto) 11.5 H Lymph # (Auto) 1.5 [place] # (Auto) 0.8 Eos # (Auto) 0.1 Baso # (Auto) 0.0 PT 11.1 INR 0.99 Sodium 140 Potassium 3.4 L Chloride 105 Carbon Dioxide 27 Anion Gap 11.4 BUN 19 Creatinine 1.00 Estimated Creat Clear 90 Estimated GFR 75 Est GFR ( Amer) 90 Glucose 107 H Lactate 1.5 Calcium 9.3 Magnesium 1.4 L Iron TIBC Iron Saturation Ferritin Total Bilirubin 0.8 AST 40 ALT 28 Alkaline Phosphatase 83 Total Protein 7.8 Albumin 4.2 Globulin 3.6 H Albumin/Globulin Ratio 1.2 Urine Color Urine Appearance Urine pH Ur Specific [place] Urine Protein Urine Glucose (UA) Urine Ketones Urine Blood Urine Nitrate Urine Bilirubin Urine Urobilinogen Ur Leukocyte Esterase Urine RBC Urine WBC Ur Squamous Epith Cells Urine Bacteria Urine Mucus Urine Sperm Gastric Occult Blood Blood Type O Positive Antibody Screen Negative DS: Diagnosis Discharge Diagnosis (1) Coffee ground emesis: Status: Acute Code(s): K92.0 - Hematemesis (2) Acute upper GI bleed: Status: Acute Code(s): K92.2 - Gastrointestinal hemorrhage, unspecified (3) Diverticulosis of colon without diverticulitis: Status: Acute Code(s): K57.30 - Diverticulosis of large intestine without perforation or abscess without bleeding (4) Hypokalemia: Status: Acute Code(s): E87.6 - Hypokalemia (5) Hypomagnesemia: Status: Acute Code(s): E83.42 - Hypomagnesemia Meds Home Medications and Allergies Home Medications ?Medication ?Instructions ?Recorded ?Confirmed ?Type meloxicam 15 mg tablet 15 mg PO DAILYP PRN Mild Pain 08/18/22 02/02/25 History (Scale Score 1-4) diphenhydramine HCl 25 mg capsule 50 mg PO HSP PRN Sleep 02/10/23 02/02/25 History (Benadryl) cetirizine 10 mg tablet (Zyrtec) 10 mg PO DAILY 05/18/23 02/02/25 History melatonin 5 mg capsule 5 mg PO HS 05/18/23 02/02/25 History omeprazole 20 mg capsule,delayed 20 mg PO DAILYP PRN Acid Reflux 05/18/23 02/02/25 History release famotidine 20 mg tablet (Pepcid) 20 mg PO DAILY 10/13/23 02/02/25 History buspirone 7.5 mg tablet 7.5 mg PO BIDP PRN Anxiety 02/14/24 02/02/25 History netarsudil 0.02 %-latanoprost 1 drp Eye-Both HS 08/23/24 02/02/25 History 0.005 % eye drops (Rocklatan) omeprazole 40 mg capsule,delayed 40 mg PO DAILY #30 caps 02/02/25 Rx release rivastigmine tartrate 4.5 mg 4.5 mg PO HS 02/02/25 02/02/25 History capsule New Prescriptions to Start Prescriptions: omeprazole Ernesto Sebastian Allergies Allergy/AdvReac Type Severity Reaction Status Date / Time Penicillins Allergy Intermediate Verified 08/23/24 10:53 morphine AdvReac Mild Verified 08/23/24 10:53 Discharge Plan Disposition Patient Disposition: Home, Self-Care Condition: Fair Follow up Plan Follow up with: Jules Guillen II, MD [Staff Physician] - Enter time for follow up (office to call) Antonella Terrazas APRN [Primary Care Provider] - 02/08/25 4:00 pm Prescriptions/Medication Reconciliation: New omeprazole 40 mg capsule,delayed release(DR/EC) 40 mg PO DAILY Qty: 30 0RF Continued cetirizine [Zyrtec] 10 mg tablet 10 mg PO DAILY omeprazole 20 mg capsule,delayed release(DR/EC) 20 mg PO DAILYP PRN (Reason: Acid Reflux) melatonin 5 mg capsule 5 mg PO HS famotidine [Pepcid] 20 mg tablet 20 mg PO DAILY buspirone 7.5 mg tablet 7.5 mg PO BIDP PRN (Reason: Anxiety) Patient Comments: Take 1 tablet twice a day by oral route as needed for 30 days. Rocklatan 0.02-0.005 % drops 1 drp Eye-Both HS Patient Comments: INSTILL 1 DROP INTO BOTH EYES EVERY DAY AT BEDTIME diphenhydramine HCl [Benadryl] 25 mg capsule 50 mg PO HSP PRN (Reason: Sleep) rivastigmine tartrate 4.5 mg capsule 4.5 mg PO HS Held meloxicam 15 mg tablet 15 mg PO DAILYP PRN (Reason: Mild Pain (Scale Score 1-4)) Hold Instructions: pending follow-up with PCP/GI Problem Reconciliation Problems Reviewed?: Yes Patient Discharge Instructions ACTIVITY: Continue current activity DIET: continue same diet Additional Instructions: Initiate Iberogast for gastric motility benefit Patient Instructions: Gastrointestinal Bleeding Print Language: Uzbek Providers Primary Care Provider: Antonella Terrazas Admit Provider: Ernesto Sebastian Attending Provider: Ernesto Sebastian
--- NOTE | 2025-02-05 12:27 | SW/DCPLANNER ---
Spoke with patient on the phone. Patient stated that he is doing very good. Patient stated that he is aware of his upcoming appointments. Patient stated that he is just waiting for the surgeon to call and schedule a follow up appointment. Patient stated that he has no concerns or questions at this time. Ritu Vergara
== END 2025-02-02 14:04 | disposition home or self-care (01) ==
LOC: ER 23:00 → 2ND 02-02 01:05
PROVIDERS: Internal Medicine Gastroenterology; Nurse Practitioner Family; Physician Assistant; Admitting Provider Internal Medicine Adolescent Medicine; Emergency Provider Student in an Organized Health Care Education/Training Program; PCP Nurse Practitioner; Visit Provider Internal Medicine Adolescent Medicine
PROC: 0DJ08ZZ Inspection of Upper Intestinal Tract, Via Natural or Artificial Opening Endoscopic (ICD-10-PCS; CPT 43239; principal; 2025-02-02 11:30)
DX: K57.30 Diverticulosis of large intestine without perforation or abscess without bleeding (principal); D72.829 Elevated white blood cell count, unspecified; E87.6 Hypokalemia; K92.0 Hematemesis; E83.42 Hypomagnesemia; K21.00 Gastro-esophageal reflux disease with esophagitis, without bleeding; K44.9 Diaphragmatic hernia without obstruction or gangrene; K29.50 Unspecified chronic gastritis without bleeding; R00.1 Bradycardia, unspecified; G31.83 Neurocognitive disorder with Lewy bodies; F02.80 Dementia in other diseases classified elsewhere, unspecified severity, without behavioral disturbance, psychotic disturbance, mood disturbance, and anxiety; R13.10 Dysphagia, unspecified; G20.A1 Parkinson's disease without dyskinesia, without mention of fluctuations; E66.9 Obesity, unspecified; Z68.31 Body mass index [BMI] 31.0-31.9, adult; Z79.899 Other long term (current) drug therapy; Z88.5 Allergy status to narcotic agent; Z88.0 Allergy status to penicillin
CPT/HCPCS: 43239; 74174; 80048; 80053; 81001; 82272; 82728; 83540; 83550; 83605; 83735; 85025; 85610; 86850; 99291; G0328; G0378; J0131; J2405; J3475; J7030; Q9967

== ENCOUNTER 2025-03-29 11:51 | Outpatient (CLI) | payer MEDICARE, SELFPAY ==
--- OUTSIDE RECORDS SUMMARY | 2025-03-29 11:55 | XMS_ITS | Encounter Summary ---
Author Organization Healthcare Address [address] [place] [address] Care Team Providers Care Equity Research Analyst Name Role Phone Pcp, No Primary Care Provider Unavailabl e Encounter Details Date Type Department Care Team ([facility] st Contact Info) Description 03/10/2024 Orders Only External Location [address] [place] [address] Provider, External Social History Tobacco Use Types Packs/Day Years Used Date Smoking Tobacco: Never Assessed Sex and Gender Information Value Date Recorded Sex Assigned at Not on file Legal Sex Male 8:37 AM EST Gender Identity Not on file Sexual Orientation Not on file documented as of this encounter Plan of Treatment Not on file documented as of this encounter Procedures Procedure Name Priority Date/Time Associated Diagnosis Comments CT OUTSIDE IMAGES 03/10/2024 7:23 AM EDT documented in this encounter Results * CT OUTSIDE IMAGES (03/10/2024 7:23 AM EDT) Anatomical Region Laterality Modality Computed Tomogra phy 03/10/2024 7:23 AM EDT us External Provider IMG CT PROCEDURES Final Result documented in this encounter Visit Diagnoses Not on filedocumented in this encounter Care Teams Equity Research Analyst Relationship Specialty Start Date End Date Pcp, No [address] [place] [address] PCP - General Family Medicine 09/17/22 documented as of this encounter
--- OUTSIDE RECORDS SUMMARY | 2025-03-29 11:55 | XMS_ITS | Encounter Summary ---
Author Organization Healthcare Address [address] [place] [address] Care Team Providers Care Art Therapy Certified Supervisor Name Role Phone Pcp, No Primary Care Provider Unavailabl e Encounter Details Date Type Department Care Team ([facility] st Contact Info) Description 03/10/2024 Orders Only External Location [address] [place] [address] Provider, External Social History Tobacco Use Types [...] Associated Diagnosis Comments CT OUTSIDE IMAGES 03/10/2024 7:27 AM EDT documented in this encounter Results * CT OUTSIDE IMAGES (03/10/2024 7:27 AM EDT) Anatomical Region Laterality Modality Computed Tomogra phy 03/10/2024 7:27 AM EDT us External Provider IMG CT PROCEDURES Final Result documented in this encounter Visit Diagnoses Not on filedocumented in this encounter Care Teams Art Therapy Certified Supervisor Relationship Specialty Start Date End Date Pcp, No [address] [place] [address] PCP - General Family Medicine 09/17/22 documented as of this encounter
--- OUTSIDE RECORDS SUMMARY | 2025-03-29 11:55 | XMS_ITS | Encounter Summary ---
Author Organization Healthcare Address [address] [place] [address] Care Team Providers Care Qc Tech Name Role Phone Pcp, No Primary Care Provider Unavailabl e Encounter Details Date Type Department Care Team ([facility] st Contact Info) Description 08/27/2022 Orders Only External Location [address] [place] [address] Provider, External Social History Tobacco Use Types [...] Procedure Name Priority Date/Time Associated Diagnosis Comments MR HEAD WO IV CONTRAST 08/27/2022 11:26 AM EST documented in this encounter Results * MR Head wo IV Contrast (08/27/2022 11:26 AM EST) Anatomical Region Laterality Modality Head Magnetic Resonan ce 08/27/2022 11:2 6 AM EST us External Provider IMG MRI PROCEDURES Final Resul t documented in this encounter Visit Diagnoses Not on filedocumented in this encounter Care Teams Qc Tech Relationship Specialty Start Date End Date Pcp, No [address] [place] [address] PCP - General Family Medicine 09/17/22 documented as of this encounter
--- OUTSIDE RECORDS SUMMARY | 2025-03-29 11:55 | XMS_ITS | Clinical Summary ---
Author Organization Healthcare Address [address] [place] [address] Care Team Providers Care Commercial Front Load Driver Name Role Phone Pcp, No Primary Care Provider Unavailabl e Allergies Active Allergy Reactions Criticality Noted Date Comments Morphine Hives Medium 08/18/2022 Penicillins Hives Medium 03/14/2023 Medications cetirizine (ZyrTEC) 10 MG tablet Take 1 tablet (10 mg) by mouth 1 (one) time each day. 30 tablet 3 Active fluticasone (Flonase) 50 MCG/ACT nasal spray Administer 1 spray into each nostril 1 (one) time each day. Shake gently. Before first use, prime pump. After use, clean tip and replace cap. 16 g 3 Active rivastigmine (Exelon) 4.5 MG capsule TAKE 1 CAPSULE BY MOUTH TWICE DAILY MAXIMUM DAILY DOSE 9 MG 4 Active omeprazole (PriLOSEC) [address] capsule Take 1 capsule every day by oral route as needed for 90 days. 4 Active Social History Tobacco Use Types Packs/Day Years Used Date Smoking Tobacco: Never Assessed Sex and Gender Information Value Date Recorded Sex Assigned at Not on file Legal Sex Male 8:37 AM EST Gender Identity Not on file Sexual Orientation Not on file Last Filed Vital Signs Vital Sign Reading Time Taken Comments Blood Pressure 150/84 04/10/2024 12:56 PM EDT Pulse 49 04/10/2024 12:56 PM EDT Temperature 36.6 C (97.8 F) 03/14/2023 11:19 AM EDT Respiratory Rate 18 03/14/2023 3:00 PM EDT Oxygen Saturation 16% 03/14/2023 3:00 PM EDT Inhaled Oxygen Concentration - - Weight 83.9 kg (185 lb) 04/10/2024 12:56 PM EDT Height 182.9 cm (6') 04/10/2024 12:56 PM EDT Body Mass Index 25.09 04/10/2024 12:56 PM EDT Plan of Treatment Health Maintenance Due Date Last Done Comments [facility]-Depression Screening 1957 [facility]-Hepatitis C Screening 1957 [facility]-Medicare Annual Wellness (AWV) 1957 [facility]-Infant/Child/Adol SDOH Screenings 1957 [facility]- SDOH Screenings 1975 [facility]-Adult SDOH Screenings 1975 [facility]-DTaP,Tdap,and Td Vaccine s (1 - Tdap) 1976 CT Colonography 2002 Colonoscopy 2002 FIT-DNA 2002 FIT 2002 FOBT 2002 Sigmoidoscopy 2002 [facility]-Colorectal Cancer Screening 2002 [facility]-Pneumococcal Vaccine: 50 + Years (1 of 1 - PCV) 2007 [facility]-Zoster Vaccines (1 of 2) 2007 [id number] Vaccine (1 - 2023- season) 2024 [facility]-Influenza Vaccine ([place] Ended) 2025 [facility]-RSV Vaccine: 60+ Years o r (1 - 1-dose 75+ series) 2032 [facility]-Obesity Intervention Completed 024, 09/17/2022 HPV Vaccines Aged Out No longer eligi ble based on patient's age to complete this topic [facility]-HIB Vaccines Aged Out No longer e ligible based on patient's age to complete this topic [facility]-Hepatitis A Vaccines Aged Out No longer eligible based on patient's age to complete this topic [facility]-IPV Vaccines Aged Out No longer e ligible based on patient's age to complete this topic [facility]-Rotavirus Vaccines Aged Out No lo nger eligible based on patient's age to complete this topic Insurance [employer] MEDICARE Care Teams Commercial Front Load Driver Relationship Specialty Start Date End Date Pcp, [place] [address] PCP - General Family Medicine 09/17/22
--- OUTSIDE RECORDS SUMMARY | 2025-03-29 11:55 | XMS_ITS | Encounter Summary ---
Author Organization Healthcare Address [address] [place] [address] Care Team Providers Care Asbestos Coverer Name Role Phone Pcp, No Primary Care Provider Unavailabl e Encounter Details Date Type Department Care Team ([facility] st Contact Info) Description 08/27/2022 Orders Only External Location [address] [place] [address] Provider, External Social History Tobacco Use Types [...] Procedure Name Priority Date/Time Associated Diagnosis Comments XR ORBITS COMPLETE 4+ VIEWS 08/27/2022 11:10 AM EST documented in this encounter Results * XR Orbits Complete 4+ Views (08/27/2022 11:10 AM EST) Anatomical Region Laterality Modality Orbital structure Radiographic I maging 08/27/2022 11:1 0 AM EST us External Provider IMG XR PROCEDURES Final Result documented in this encounter Visit Diagnoses Not on filedocumented in this encounter Care Teams Asbestos Coverer Relationship Specialty Start Date End Date Pcp, No [address] [place] [address] PCP - General Family Medicine 09/17/22 documented as of this encounter
[2025-03-29 12:38] LABS: Basophils # 0.1 K/mm3 (0-0.2); Basophils % 0.8 % (0.1-2.0); Eosinophils # 0.1 Kmm3 (0.0-0.4); Eosinophils % 1.8 % (0.1-12.0); Hematocrit 44.9 % (42.0-52.0); Hemoglobin 14.8 g/dL (14.1-18.0); Immature Granulocytes # 0.01 10^3uL; Immature Granulocytes % 0.1 %; Lymphocytes % 26.2 % (10-50); Mean Corpuscular Hemoglobin 29.6 pg (27.0-31.2); Mean Corpuscular Volume 89.8 fl (80-94); Mean Platelet Volume 9.4 fl (7.4-10.4); Monocytes # 0.7 K/mm3 (0.1-1.0); Monocytes % 8.6 % (1.7-9.3); Neutrophils # 4.8 K/mm3 (1.8-7.8); Neutrophils % 62.5 % (37.0-80.0); Nucleated Red Blood Cells # 0 10^3/uL; Nucleated Red Blood Cells % 0 %; Platelet Count 250 K/mm3 (142-424); Red Cell Distribution Width 11.7 % (11.5-17.5); Red Cell Distribution Width-SD 37.9 fL; White Blood Count 7.7 K/mm3 (4.8-10.8)
[2025-03-29 13:18] LABS: Iron 118 ug/dL (49-181)
[2025-03-29 13:28] LABS: Total Iron Binding Capacity 349 ug/dL (261-462)
[2025-03-29 13:55] LABS: Ferritin 22.6 ng/ml (17.9-464)
== END 2025-03-29 23:59 | disposition home or self-care (01) ==
LOC: LAB 11:53
PROVIDERS: PCP Nurse Practitioner; Visit Provider Nurse Practitioner Family
DX: D64.9 Anemia, unspecified (principal)
CPT/HCPCS: 36415; 82728; 83540; 83550; 85025